=== PATIENT | female | born 1970 | race Caucasian/White ===

== ENCOUNTER 2021-05-25 02:05 | Day surgery (SDC) | payer OTHER, SELFPAY ==
[2021-05-16 11:47] VITALS: BMI 34.4
--- NOTE | 2021-05-24 14:32 | PM.HPGS ---
History of Present Illness History of Present Illness Consent: Risks, benefits, and alternatives have been discussed and questions answered. Patient agrees to proceed with procedure. Chief complaint: GERD, dysphagia Narrative: Deisy Mcneal I is a 50 year old female Who has had dysphagia and painful swallowing for meats and other solid foods for the past several months. She has no problem with liquids. she recently tried changing her diet and avoiding eating late at night to see if she could get by without taking medications. She actually has not had an episode for the past several weeks. She does also have a sensation of phlegm caught in the front of her throat most of the time. Review of Systems Review of Systems: All systems reviewed & are unremarkable except as noted in HPI and below PMFSH Past Medical History Medical History Enlarged lymph node Furuncle of skin or subcutaneous tissue Subcutaneous cyst Surgical History Surgical History S/P appendectomy S/P cholecystectomy Family History Family History Mother Family history of diabetes mellitus in first degree relative Diabetes mellitus Patient's mother is in good health Other Family history of cardiovascular disease Family history of kidney disease Social History Social History Smoking status: Never smoker Alcohol intake: never Substance use: never Substance use type: does not use Living arrangements: with family Gender identity (if verbalized by the patient): Female Sexual Orientation (if Verbalized by the Patient): Straight or Heterosexual Spiritual care concerns: No Meds Home Medications and Allergies Home Medications Medication Instructions Recorded Confirmed Type multivitamin 1 cap PO DAILY 09/17/19 05/16/21 History Metamucil 1 cap PO DAILY 05/16/21 05/16/21 History Allergies Allergy/AdvReac Type Severity Reaction Status Date / Time lactose AdvReac Intermediate GI UPSET Verified 05/25/21 09:38 Exam Const: General: alert Orientation/consciousness: patient oriented x3 Resp: Auscultation: clear to auscultation bilaterally Cardio: Rhythm: regular rhythm GI: GI Palp: Yes Soft to palpation and No Tenderness to palpation present (GI) Neuro: General: patient oriented x3 Assessment and Plan Assessment and plan (1) Dysphagia: Code(s): R13.10 - Dysphagia, unspecified Status: Acute Assessment and Plan: EGD with possible biopsy or dilatation or cautery.
[2021-05-25 09:41] VITALS: BP 131/64; PULSE 70; RESP 20; TEMP 36.5; O2SAT 97; BMI 34.8
[2021-05-25] MEDS: LACTATED RINGERS 1,000 ML 150 ML IV CONT (09:53)
--- NOTE | 2021-05-25 10:33 | P.PNAN_ITS ---
Anes - Initial Pre Proc Eval Procedure: Operation Date: 05/25/21 10:45 Proposed Procedures p Esophagogastroduodenoscopy - Chun Gonzalez MD Date/Time: 05/25/21 10:33 Surgeon: Chun Gonzalez MD Pre Op Diagnosis: GERD, dysphagia Patient Data Age: 50 Gender: F Height: 1.63 m Weight: 92 kg Last Vital Signs Temp 97.7 F 05/25/21 09:41 Pulse 70 05/25/21 09:41 Resp 20 05/25/21 09:41 BP 131/64 05/25/21 09:41 Pulse Ox 97 05/25/21 09:41 Allergies Allergy/AdvReac Type Severity Reaction Status Date / Time lactose AdvReac Intermediate GI UPSET Verified 05/25/21 09:38 Home Medications Medication Instructions Recorded Confirmed Type multivitamin 1 cap PO DAILY 09/17/19 05/16/21 History Metamucil 1 cap PO DAILY 05/16/21 05/16/21 History Patient hx anesthesia problems: none Family hx anesthesia problems: none Results Review: All pre-operative results and documents have been reviewed as part of the pre-operative evaluation. [facility] Past Medical History Medical History Enlarged lymph node Furuncle of skin or subcutaneous tissue Subcutaneous cyst Surgical History Surgical History S/P appendectomy S/P cholecystectomy Family History Family History Mother Family history of diabetes mellitus in first degree relative Diabetes mellitus Patient's mother is in good health Other Family history of cardiovascular disease Family history of kidney disease Social History Social History (Updated 04/20/21 @ 15:57 by Tiffany Hernández) Smoking status: Never smoker Alcohol intake: never Substance use: never Substance use type: does not use Living arrangements: with family Gender identity (if verbalized by the patient): Female Sexual Orientation (if Verbalized by the Patient): Straight or Heterosexual Spiritual care concerns: No Anes - Eval Final PreProcedure Day of Procedure 05/25/21 10:33 Patient weight: obese Heart: regular rate and rhythm Lungs: clear to auscultation Airway: Mallampati scale class II Neurological: alert and oriented Last oral intake: >/= 8 hours ASA classification: II Emergent: no Anesthetic plan: proceed Anesthesia type and monitoring: general GIVS and standard monitoring Results Review: All pre-operative results and documents have been reviewed as part of the pre-operative evaluation. Informed Consent: The patient's anesthetic plan and its attendant risks and benefits were discussed with the patient/family/POA. Questions were solicited and answers provided to the satisfaction of the patient/family/POA.
[2021-05-25 11:01] VITALS: BP 100/52; PULSE 79; RESP 20; O2SAT 100
[2021-05-25 11:11] VITALS: BP 106/63; PULSE 75; RESP 17; O2SAT 96
[2021-05-25 11:21] VITALS: BP 116/67; PULSE 68; RESP 16; O2SAT 96
== END 2021-05-25 11:30 | disposition home or self-care (01) ==
PROVIDERS: PCP Family Medicine; Visit Provider Internal Medicine Gastroenterology
PROC: 0DJ08ZZ Inspection of Upper Intestinal Tract, Via Natural or Artificial Opening Endoscopic (ICD-10-PCS; CPT 43235; principal; 2021-05-25 10:45)
DX: K22.2 Esophageal obstruction (principal); K21.00 Gastro-esophageal reflux disease with esophagitis, without bleeding; K44.9 Diaphragmatic hernia without obstruction or gangrene; K22.10 Ulcer of esophagus without bleeding; E66.9 Obesity, unspecified; Z68.34 Body mass index [BMI] 34.0-34.9, adult
CPT/HCPCS: 43239; 43249; 87081; 88305; C1726; J2001; J2704; J7120

== ENCOUNTER 2021-07-27 00:37 | Day surgery (SDC) | payer OTHER, SELFPAY ==
[2021-07-11 12:01] VITALS: BMI 34.4
--- NOTE | 2021-07-26 16:06 | P.HP_ITS ---
History of Present Illness History of Present Illness Consent: Risks, benefits, and alternatives have been discussed and questions answered. Patient agrees to proceed with procedure. Chief complaint: esophagitis, esophageal stricture Narrative: Deisy Mcneal is a 51 year old female Who has had dysphagia and painful swallowing for meats and other solid foods for the past several months. She has no problem with liquids. she recently tried changing her diet and av oiding eating late at night to see if she could get by without taking medications. She actually has not had an episode for the past several weeks. She does also have a sensation of phlegm caught in the front of her throat most of the time. Review of Systems Review of Systems: All systems reviewed & are unremarkable except as noted in HPI and below PMFSH Past Medical History Medical History Enlarged lymph node Furuncle of skin or subcutaneous tissue Subcutaneous cyst Surgical History Surgical History S/P appendectomy S/P cholecystectomy Family History Family History Mother Family history of diabetes mellitus in first degree relative Diabetes mellitus Patient's mother is in good health Other Family history of cardiovascular disease Family history of kidney disease Social History Social History Social History: Smoking status: Never smoker Second hand tobacco smoke exposure: No Alcohol intake: never Substance use: never Substance use type: does not use Living arrangements: with family Gender identity (if verbalized by the patient): Female Sexual Orientation (if Verbalized by the Patient): Straight or Heterosexual Spiritual care concerns: No Meds Home Medications and Allergies Home Medications Medication Instructions Recorded Confirmed Type multivitamin 1 cap PO DAILY 09/17/19 07/27/21 History Metamucil 1 cap PO DAILY 05/16/21 07/27/21 History Allergies Allergy/AdvReac Type Severity Reaction Status Date / Time lactose AdvReac Intermediate GI UPSET Verified 07/27/21 08:01 Assessment and Plan Assessment and plan (1) Dysphagia: Code(s): R13.10 - Dysphagia, unspecified Status: Acute Assessment and Plan: EGD with possible biopsy or dilatation or cautery. The procedure was discussed including the possibility of bleeding or perforation as complications, the fact that either complication could result in need for hospitalization and even surgery.
[2021-07-27 08:02] VITALS: BP 117/59; PULSE 70; RESP 17; TEMP 36.2; O2SAT 98; BMI 34.2
[2021-07-27] MEDS: LACTATED RINGERS 1,000 ML 150 ML IV CONT (08:04)
--- NOTE | 2021-07-27 08:41 | WPDANESEPPF ---
Anes - Initial Pre Proc Eval Procedure: Operation Date: 07/27/21 08:30 Proposed Procedures p Esophagogastroduodenoscopy - Chun Gonzalez MD Date/Time: 07/27/21 08:41 Surgeon: Chun Gonzalez MD Pre Op Diagnosis: esophagitis, esophageal stricture Patient Data Age: 51 Gender: F Height: 1.63 m Weight: 90.3 kg Last Vital Signs Temp 97.1 F L 07/27/21 08:02 Pulse 70 07/27/21 08:02 Resp 17 07/27/21 08:02 BP 117/59 L 07/27/21 08:02 Pulse Ox 98 07/27/21 08:02 Allergies Allergy/AdvReac Type Severity Reaction Status Date / Time lactose AdvReac Intermediate GI UPSET Verified 07/27/21 08:01 Home Medications Medication Instructions Recorded Confirmed Type multivitamin 1 cap PO DAILY 09/17/19 07/27/21 History Metamucil 1 cap PO DAILY 05/16/21 07/27/21 History Patient hx anesthesia problems: none Family hx anesthesia problems: none Results Review: All pre-operative results and documents have been reviewed as part of the pre-operative evaluation. [facility] Past Medical History Medical History Enlarged lymph node Furuncle of skin or subcutaneous tissue Subcutaneous cyst Surgical History Surgical History S/P appendectomy S/P cholecystectomy Family History Family History Mother Family history of diabetes mellitus in first degree relative Diabetes mellitus Patient's mother is in good health Other Family history of cardiovascular disease Family history of kidney disease Social History Social History Social History: Smoking status: Never smoker Second hand tobacco smoke exposure: No Alcohol intake: never Substance use: never Substance use type: does not use Living arrangements: with family Gender identity (if verbalized by the patient): Female Sexual Orientation (if Verbalized by the Patient): Straight or Heterosexual Spiritual care concerns: No Anes - Eval Final PreProcedure Day of Procedure 07/27/21 08:41 Patient weight: obese Heart: regular rate and rhythm Lungs: clear to auscultation Airway: Mallampati scale class II Neurological: alert and oriented Last oral intake: >/= 8 hours ASA classification: II Emergent: no Anesthetic plan: proceed Anesthesia type and monitoring: general GIVS and standard monitoring Results Review: All pre-operative results and documents have been reviewed as part of the pre-operative evaluation. Informed Consent: The patient's anesthetic plan and its attendant risks and benefits were discussed with the patient/family/POA. Questions were solicited and answers provided to the satisfaction of the patient/family/POA.
[2021-07-27 09:12] VITALS: BP 84/62; PULSE 73; RESP 20; O2SAT 97
[2021-07-27 09:22] VITALS: BP 95/56; PULSE 61; RESP 20; O2SAT 100
[2021-07-27 09:32] VITALS: BP 100/59; PULSE 60; RESP 20; O2SAT 100
== END 2021-07-27 09:41 | disposition home or self-care (01) ==
PROVIDERS: PCP Family Medicine; Visit Provider Internal Medicine Gastroenterology
PROC: 0DJ08ZZ Inspection of Upper Intestinal Tract, Via Natural or Artificial Opening Endoscopic (ICD-10-PCS; CPT 43235; principal; 2021-07-27 08:30)
DX: K21.00 Gastro-esophageal reflux disease with esophagitis, without bleeding (principal); K22.2 Esophageal obstruction; K44.9 Diaphragmatic hernia without obstruction or gangrene; K29.70 Gastritis, unspecified, without bleeding; E66.9 Obesity, unspecified; Z68.34 Body mass index [BMI] 34.0-34.9, adult
CPT/HCPCS: 43239; 43249; 87081; 88305; C1726; J2704; J7120

== ENCOUNTER → 2021-10-03 09:53 | Outpatient (CLI) | payer OTHER, SELFPAY ==
--- NOTE | ~2021-10-03 | XR_ITS ---
XR foot RT min 3V DATE: 10/03/2021 10:31 INDICATION: Right foot pain TECHNIQUE: 4 views COMPARISON: None FINDINGS: Prominent plantar calcaneal enthesopathy. No fracture or dislocation, periosteal reaction or bone destruction. There is mild degenerative change of the tarsal and tarsometatarsal joints. IMPRESSION: Plantar calcaneal enthesopathy Mild osteoarthritis Reviewed, dictated and finalized at location A. RT WITNESS
== END ==
PROVIDERS: PCP Family Medicine; Visit Provider Physician Assistant
DX: M77.31 Calcaneal spur, right foot (principal); M19.071 Primary osteoarthritis, right ankle and foot
CPT/HCPCS: 73630

== ENCOUNTER → 2022-01-01 09:03 | Outpatient (CLI) | payer BC, SELFPAY ==
--- NOTE | ~2022-01-01 | XR_ITS ---
XR knee RT min 4V DATE: 01/01/2022 09:35 INDICATION: Right knee pain TECHNIQUE: [place] and standing AP, PA and lateral views COMPARISON: 11/08/2004 FINDINGS: There is periarticular spurring at the patellofemoral joint and medial compartment consiste nt with osteoarthritis. Medial and lateral compartment joint spaces appear relatively preserved. There is mild suprapatellar knee joint effusion. No fracture or dislocation, periosteal reaction or bone destruction. No radiopaque intra-articular lo ose body or chondrocalcinosis. IMPRESSION: Mild knee joint effusion Mild medial and patellofemoral osteoarthritis Reviewed, dictated and finalized at location B.
== END ==
PROVIDERS: PCP Family Medicine; Visit Provider Physician Assistant
DX: M25.461 Effusion, right knee (principal); M17.11 Unilateral primary osteoarthritis, right knee
CPT/HCPCS: 73564

== ENCOUNTER → 2022-10-17 12:17 | Outpatient (CLI) | payer BC, SELFPAY ==
--- NOTE | ~2022-10-17 | MR_ITS ---
MRI of the right knee Clinical history: Pain Technique: Coronal proton density and proton density-weighted images, sagittal proton-density and T2 fat-sat images, and axial proton-density fat-saturated images were acquired. Findings: Anterior and posterior cruciate ligaments are intact. Medial collateral ligament and the la teral collateral ligament complex are intact. Popliteus tendon is intact. Medial and lateral menisci are intact, without evidence of tear. Articular cartilage is well preserved the medial and lateral compartment. 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 Tricompartmental osteophytes are present. Extensor mechanism is intact. Small joint effusion present. No Shirley's cyst. Impression: Moderate degenerative change of the patellofemoral compartment. Minimal degenerative change of the me dial and lateral compartments. Small joint effusion. No ligamentous injury or meniscal tear. Reviewed, dictated and finalized at [facility]. 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 Minimal degener ative change of the medial and lateral compartments. Small joint effusion. No ligamentous injury or meniscal tear.
== END ==
PROVIDERS: PCP Family Medicine; Visit Provider Orthopaedic Surgery
DX: M25.461 Effusion, right knee (principal)
CPT/HCPCS: 73721

== ENCOUNTER 2024-10-17 08:50 | Outpatient (CLI) | payer BC, SELFPAY ==
--- NOTE | ~2024-10-17 | XR_ITS ---
EXAMINATION: XR tibia fibula RT 2V DATE: 10/17/2024 09:05 INDICATION: Right lower leg injury TECHNIQUE: AP and lateral views of the right lower leg were obtained. COMPARISON: None. FINDINGS: Bone alignment is normal. No fracture. No cortical erosions or periosteal reaction. Mild osteoarthrit is at the lateral and patellofemoral compartments of the right knee. No right knee or ankle joint eff usion. Mild soft tissue swelling anterior to the distal tibia. Subcutaneous varicosities along the la teral side of the right knee and along the posterior lateral aspects of the proximal to mid calf. No radiopaque foreign bodies. IMPRESSION: 1. No acute osseous abnormality. Reviewed, dictated and finalized at location A. 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
== END 2024-10-17 08:51 | disposition home or self-care (01) ==
LOC: MICIMG 08:51
PROVIDERS: PCP Family Medicine; Visit Provider Physician Assistant
DX: S89.91XA Unspecified injury of right lower leg, initial encounter (principal); X58.XXXA Exposure to other specified factors, initial encounter; M79.661 Pain in right lower leg
CPT/HCPCS: 73590

== ENCOUNTER 2024-11-18 07:46 | Outpatient (CLI) | payer BC, SELFPAY ==
--- NOTE | ~2024-11-18 | XR_ITS ---
XR knee RT min 4V Ordering provider: Josh Watson MD History: . M22.2X9 - Patellofemoral disorders, unspecified knee . Comparison: None. FINDINGS: BONES: No acute fracture or dislocation. JOINT SPACES: Mild narrowing of the lateral compartment. Marginal osteophytes of the patella. SOFT TISSUES: Normal. IMPRESSION: No acute osseous abnormality right knee. Mild osteoarthritic changes. Reviewed, dictated and finalized at location A.
== END 2024-11-18 07:47 | disposition home or self-care (01) ==
LOC: MICIMG 07:47
PROVIDERS: PCP Family Medicine; Visit Provider Orthopaedic Surgery
DX: M22.2X1 Patellofemoral disorders, right knee (principal); M17.11 Unilateral primary osteoarthritis, right knee
CPT/HCPCS: 73564

== ENCOUNTER 2025-03-17 13:18 | Outpatient (CLI) | payer BC, SELFPAY ==
--- NOTE | ~2025-03-17 | XR_ITS ---
XR knee RT min 4V 03/17/2025 13:47 Indication: Right knee pain Procedure: 5 views right knee Comparison: 11/18/2024 Findings: There is mild tricompartment osteoarthritis. No fracture, subluxation or dislocation. No sakina int effusion. No foreign bodies. Impression: 1: Mild tricompartment osteoarthritis of the right knee. Reviewed, dictated and finalized at location A. Impression: 1: Mild tricompartment osteoarthritis of the right knee.
== END 2025-03-17 13:19 | disposition home or self-care (01) ==
LOC: MICIMG 13:19
PROVIDERS: PCP Family Medicine; Visit Provider Orthopaedic Surgery
DX: M17.11 Unilateral primary osteoarthritis, right knee (principal)
CPT/HCPCS: 73564

== ENCOUNTER 2025-06-01 12:52 | Outpatient (CLI) | payer BC, SELFPAY ==
--- OUTSIDE RECORDS SUMMARY | 2025-04-05 10:10 | XMS_ITS ---
Author Organization [facility] Address [address] [place], [place] [id number] Care Team Providers Care Eye Surgeon Name Role Phone MIKA MILLS Unavailable [phone] Marc Neff Unavailable Unavailable REASON FOR VISIT [...] stop date) Never Smoker NA - NA Tobacco Control (Standard) Question Answer Notes Tobacco use: Nonsmoker Vital Signs Height 63 in 04/05/2025 Weight 200 lbs 04/05/2025 BMI 35.42 kg/m2 04/05/2025 Height-cm 160.02 cm 04/05/2025 Weight-kg 90.72 kg 04/05/2025 Encounters Encounter Location Date Provider Diagnosis [facility] [address] [address] [place], [place] [id number] 04/05/2025 MIKA NEWBERRY Other eccrine sweat disorders [...] Weeks, Reason: Debride and ablate as needed Progress Notes * Deisy HESS IDOB:1970 (54 yo F)Acc No.[id number]:04/05/2025 Patient: Deisy BOLIVAR I Provider: Hari Newberry DPM :1970 A ge:54 Y S ex:Female Date:04/05/2025 Address:[address] [place], [place] [id number] Subjective: * Chief Complaints: * 1 . The patient presents with multiple foot issues. She has painful porokeratosis that form on the 5th metatarsal bases of both feet, but the right hurts worse than the left. She also has a painful 2nd digit hammertoe of the right foot that also hurts and aches. * HPI: H PI: Follow Up Visit P atient presents for follow up visit for bilateral porokeratosis spots. Patient states they are extremely painful and need to be shaved down. , MA: [facility]. * ROS: G eneral / Constitutional: Patient [...] confusion, difficulty speaking, dizziness. * Medical History: A jeremias reflux, Leg/Feet cramps, Back Trouble. * Social History: T obacco Use: T obacco Control (Standard) T obacco use: N onsmoker. * Medications: N one Objective: * Vitals: [...] Weeks (Reason: Debride and ablate as needed) * Billing Information: * Visit Code: 86713 Office Visit, Est Pt., Level 3. * Procedure Codes: * Electronic signature of MIKA NEWBERRY DPM on 06/01/2025 at 01:41 PM CDT Sign off status: Pending * Provider: Hari Newberry DPM Date: 0 04/05/2025 Generated for Heavenly hansen/Ileana/Jenniffer on: 1 01:41 PM CDT History and Physical Notes * HPI (History of Present Illness) Category Sub-Category Detail Notes Category Not es HPI Follow Up Visit Patient presents for follow up visit for bilateral porokeratosis spots. Patient states they are extremely painful and need to be shaved down. , MA: [facility] Examination Category Sub-Category Detail Notes Category Not es Dermatologic Skin findings: Skin is warm, dr y, supple with no breaks in the skin [...]
--- OUTSIDE RECORDS SUMMARY | 2025-04-19 11:10 | XMS_ITS ---
Author Organization [facility] Address [address] [place], [place] [id number] Care Team Providers Care Information Strategist Name Role Phone MIKA NEWBERRY Unavailable [phone] Marc Neff Unavailable Unavailable REASON FOR VISIT *Porokeratosis check, has to knot picker cloth granddaugheter Encounters Encounter Location Date Provider Diagnosis [facility] [place] [address] [place], [place] [address] 04/19/2025 MIKA NEWBERRY Plan Of Treatment No Information Progress Notes * Deisy HESS IDOB:1970 (54 yo F)Acc No.[id number]:04/19/2025 Patient: Deisy BOLIVAR I Provider: Hari Newberry DPM :1970 A ge:54 Y S ex:Female Date:04/19/2025 Address:[address] [place], [place] [id number] Subjective: * Chief Complaints: * 1 . *Porokeratosis check, has to knot picker cloth granddaugheter. * Medical History: Objective: * Vitals: Assessment: Plan: * Treatment: * Billing Information: * Visit Code: * Procedure Codes: * Electronic signature of MIKA NEWBERRY DPM on 06/01/2025 at 01:41 PM CDT Sign off status: Pending * Provider: Hari Newberry DPM Date: 0 04/19/2025 Generated for Feri ng/Fajuwang/eTransmitting on: 1 01:41 PM CDT
--- OUTSIDE RECORDS SUMMARY | 2025-05-06 08:40 | XMS_ITS ---
Author Organization [facility] Address [address] [place], [place] [address] Care Team Providers Care Chainer Name Role Phone MARYKorin MIKA Unavailable [phone] Marc Neff Unavailable Unavailable Allergies No Known [...] Location Date Provider Diagnosis [facility] [address] [facility] [address] [place], [place] [phone] 05/06/2025 MIKA NEWBERRY Other eccrine sweat disorders [...] Next Appt Details Follow Up: prn, Reason: Progress Notes * Deisy HESS IDOB:1970 (54 yo F)Acc No.[id number]:05/06/2025 Patient: Deisy BOLIVAR I Provider: Hari Newberry DPM :1970 A ge:54 Y S ex:Female Date:05/06/2025 Address:[address] [place], [place] [id number] Subjective: * Chief Complaints: * 1 . The patient tolerated the chemical ablation well. She also has pain in the left great toenail. She has never had an ingrown toenail before. It has not been bleeding or draining. * HPI: H PI: New Complaint E [...] jeremias reflux, Leg/Feet cramps, Back Trouble. * Surgical History: D enies Past Surgical History. * Hospitalization/Major Diagno stic Procedure: D enies Past Hospitalization. * Family History: N o Family History documented.. * Medications: N one * Allergies: N .K.D.A. Objective: * Vitals: S hoe Size: 9, [...] foot health. * Follow Up: p rn * Billing Information: * Visit Code: 04519 Office Visit, Est Pt., Level 3. * Procedure Codes: * Electronic signature of MIKA NEWBERRY DPM on 06/01/2025 at 01:42 PM CDT Sign off status: Pending * Provider: Hari Newberry DPM Date: 0 05/06/2025 Generated for Heavenly hansen/Ileana/Jenniffer on: 01:42 PM CDT History and Physical Notes * [...]
--- NOTE | 2025-06-01 13:11 | ECG_ITS ---
Test Date: 2025-06-01 13:47:21 Measurements Intervals [place] Rate: 66 P: 35 AK: 151 QRS: -30 QRSD: 82 T: 0 QT: 405 QTc: 425 Interpretive Statements SINUS RHYTHM DELAYED PRECORDIAL R/S TRANSITION BORDERLINE T WAVE ABNORMALITY- INFERIOR LEADS BORDERLINE ECG No previous ECG available for comparison Electronically Signed On 06-01-2025 13:55:21 CDT by Cody Carreon D.O.
[2025-06-01 13:42] LABS: Hematocrit 40.1 % (37.0-47.0); Hemoglobin 12.7 g/dL (12.0-15.0)
--- OUTSIDE RECORDS SUMMARY | 2025-06-01 13:42 | XMS_ITS | Patient Health Record ---
Author Organization [facility] Address [address] [place], [place] [address] Care Team Providers Care Assisted Living Director Name Role Phone MIKA NEWBERRY Unavailable [phone] Marc Neff Unavailable Unavailable Allergies No Known Allergies Reason For Referral No Information Immunizations Vaccine Route Administration Date Status Comme nts Influenza, high dose seasonal Unknown 01/13/2024 Refuse d Pneumococcal conjugate PCV 13 Unknown 01/13/2024 Refuse d Social History Tobacco Use: Social History Observation Description Date Details (start date - stop date) Never Smoker NA - NA Tobacco Control (Standard) Question Answer Notes Tobacco use: Nonsmoker Vital Signs Height-cm 160.02 cm 05/06/2025 Weight-kg 90.72 kg 05/06/2025 Height 63 in 05/06/2025 Weight 200 lbs 05/06/2025 BMI 35.42 kg/m2 05/06/2025 Encounters Encounter Location Date Provider Diagnosis [facility] [address] [place], [place] [id number] 04/05/2025 MIKA SNOOK Other eccrine sweat disorders L74.8 ; Metatarsalgia, right foot M77.41 ; Other hammer toe(s) (acquired), right foot M20.41 and Pain in right foot M79.671 [facility] [address] [place], [place] [address] 05/06/2025 MIKA SNOOK Other eccrine sweat disorders L74.8 ; Ingrowing nail L60.0 and Metatarsalgia, right foot M77.41 [facility] [place] [address] [address] [place] [id number] 06/15/2024 MIKA SNOOK Other eccrine sweat disorders L74.8 ; Metatarsalgia, right foot M77.41 and Pain in right foot M79.671 [facility] [place] [address] [address] [place] [id number] 06/29/2024 MIKA SNOOK Other eccrine sweat disorders L74.8 and Metatarsalgia, right foot M77.41 [facility] [place] [address] [address] [place] [id number] 11/16/2024 MIKA SNOOK Other eccrine sweat disorders L74.8 ; Metatarsalgia, right foot M77.41 ; Other hammer toe(s) (acquired), right foot M20.41 and Pain in right foot M79.671 [facility] [place] [address] [address] [place] [id number] 11/30/2024 MIKA SNOOK Other eccrine sweat disorders L74.8 ; Metatarsalgia, right foot M77.41 ; Other hammer toe(s) (acquired), right foot M20.41 and Pain in right foot M79.671 Assessments Encounter Date Diagnosis (ICD Code) Assessment Notes Treatment Notes Treatment Clinical Notes Section Notes 06/15/2024 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 The patient was given after care instructions. Follow up in two weeks to debride and re-ablate as needed. 06/15/2024 Metatarsalgia, right foot (ICD-10 - M77.41) Metatarsalgia: I discussed anti-inflammatory treatment options and various means of immobilization with the patient. I educated the patient on icing and stretching, supportive shoegear, and the use of orthotic devices and bracing. Shoe Recommendation: Advised patient on appropriate shoe gear for protection, healing and good foot health. 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 No evidence of porokeratosis noted. Patient advised to monitor this area, as well as to use emollients and keep pressure off this area with padding, inserts, or orthotics. 06/29/2024 Metatarsalgia, right foot (ICD-10 - M77.41) Metatarsalgia: I discussed anti-inflammatory treatment options and various means of immobilization with the patient. I educated the patient on icing and stretching, supportive shoegear, and the use of orthotic devices and bracing. Shoe Recommendation: Advised patient on appropriate shoe gear for protection, healing and good foot health. 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 The patient was given after care instructions. Follow up in two weeks to debride and re-ablate as needed. 11/16/2024 Metatarsalgia, right foot (ICD-10 - M77.41) Metatarsalgia: I discussed anti-inflammatory treatment options and various means of immobilization with the patient. I educated the patient on icing and stretching, supportive shoegear, and the use of orthotic devices and bracing. Shoe Recommendation: Advised patient on appropriate shoe gear for protection, healing and good foot health. 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 No evidence of porokeratosis noted. Patient advised to monitor this area, as well as to use emollients and keep pressure off this area with padding, inserts, or orthotics. 11/30/2024 Metatarsalgia, right foot (ICD-10 - M77.41) Metatarsalgia: I discussed anti-inflammatory treatment options and various means of immobilization with the patient. I educated the patient on icing and stretching, supportive shoegear, and the use of orthotic devices and bracing. Shoe Recommendation: Advised patient on appropriate shoe gear for protection, healing and good foot health. 04/05/2025 Other eccrine sweat disorders (ICD-10 - [...] for protection, healing and good foot health. 05/06/2025 Ingrowing nail (ICD-10 - L60.0) Slant Back Toenail: Following skin prep, the offending nail border was debrided without anesthesia. The patient was instructed on monitoring for infection or recurrence. 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 No evidence of porokeratosis noted. Patient advised to monitor this area, as well as to use emollients and keep pressure off this area with padding, inserts, or orthotics. 05/06/2025 Metatarsalgia, right foot (ICD-10 - M77.41) [...] accomodative padding to offload pressure from area. 11/30/2024 Other hammer toe(s) (acquired), right foot (ICD-10 - M20.41) Hammertoe Deformity: Discussed various treatments for hammer toes with the patient . Discussed conservative care consisting of padding, wider shoes, anti-inflammatorie s, and orthotics. Discussed surgical treatment options and answered all questions about the intra-operative and post-operative treatment course. 11/16/2024 Other hammer toe(s) (acquired), right foot (ICD-10 - M20.41) Hammertoe Deformity: Discussed various treatments for hammer toes with the patient . Discussed conservative care consisting of padding, wider shoes, anti-inflammatorie s, and orthotics. Discussed surgical treatment options and answered all questions about the intra-operative and post-operative treatment course. 06/15/2024 Pain in right foot (ICD-10 - M79.671) 11/16/2024 Pain in right foot (ICD-10 - M79.671) 11/30/2024 Pain in right foot (ICD-10 - M79.671) 04/05/2025 Pain in right foot (ICD-10 - M79.671) Plan Of Treatment No Information Insurance Providers Payer Name Payer Address Payer Phone Subscriber Number Group Number Insured Name Patient Relationship to Insured Coverage Start Date Coverage End Date [facility] ([facility]) ATTN CLAIMS [address] [place] [address] [id number] Deisy Mcneal Self - patient is the insured Medical (General) History Medical History History ICD Code acid reflux Leg/Feet cramps Back Trouble
[2025-06-01 14:12] LABS: Albumin Level 4.0 g/dL (3.5-5.1); Estimated Glomerular Filt Rate > 60; Glucose 94 mg/dL (65-110)
== END 2025-06-01 12:53 | disposition home or self-care (01) ==
LOC: ANHLAB 12:53
PROVIDERS: PCP Family Medicine; Visit Provider Orthopaedic Surgery
DX: M17.11 Unilateral primary osteoarthritis, right knee (principal); E55.9 Vitamin D deficiency, unspecified; Z01.818 Encounter for other preprocedural examination; R94.31 Abnormal electrocardiogram [ECG] [EKG]
CPT/HCPCS: 36415; 82040; 82565; 82947; 85014; 85018; 93005

== ENCOUNTER 2025-07-15 09:54 | Outpatient (CLI) | payer BC, SELFPAY ==
[2025-07-15 11:02] LABS: Hematocrit 42.5 % (37.0-47.0); Hemoglobin 13.3 g/dL (12.0-15.0); Immature Granulocyte Percent A 0.3 % (0-0.5); Lymphocytes Absolute Auto 2.06 K/mm3 (0.9-3.2); Mean Corpuscular HGB Conc 31.3 g/dl (32-36); Mean Corpuscular Hemoglobin 27.0 pg (26-34); Mean Corpuscular Volume 86.2 fl (80-100); Nucleated Red Blood Cells Absolute Auto 0.000 K/mm3 (0.0-0.012); Nucleated Red Blood Cells Perc 0.0 % (0.0-0.2); Platelet Count Result 246 k/mm3 (150-375); Red Blood Count 4.93 M/mm3 (4.2-5.4); White Blood Count 7.9 K/mm3 (4.5-10.0)
[2025-07-15 11:15] LABS: Hemoglobin A1C 5.7 % (<5.7)
[2025-07-15 11:21] LABS: Albumin Level 4.0 g/dL (3.5-5.1); Estimated Glomerular Filt Rate > 60; Glucose 93 mg/dL (65-110)
[2025-07-15 12:13] LABS: MRSA (PCR) NOT DETECTED (NOT DETECTE)
== END 2025-07-15 09:55 | disposition home or self-care (01) ==
LOC: ANHSURGERY 10:00
PROVIDERS: PCP Family Medicine; Visit Provider Orthopaedic Surgery
DX: M17.11 Unilateral primary osteoarthritis, right knee (principal); Z01.818 Encounter for other preprocedural examination
CPT/HCPCS: 80307; 82040; 82565; 82947; 83036; 85025; 87641

== ENCOUNTER 2025-08-12 02:42 | Day surgery (SDC) | payer BC, SELFPAY ==
--- OUTSIDE RECORDS SUMMARY | 2025-04-05 09:10 | XMS_ITS ---
Author Organization [facility] Address [address] [place], [place] [id number] Care Team Providers Care Liquor Runner Name Role Phone MIKA MILLS Unavailable [phone] Marc Neff Unavailable Unavailable REASON FOR VISIT The patient presents with multiple foot issues. She has painful porokeratosis that form on the 5th metatarsal bases of both feet, but the right hurts worse than the left. She also has a painful 2nd digit hammertoe of the right foot that also hurts and aches Social History Tobacco Use: Social History Observation Description Date Details (start date - stop date) Never Smoker NA - NA Social History Tobacco Use: Social Info Question Answer Notes Tobacco Control (Standard) Tobacco use: Nonsmoker Vital Signs Height 63 in 04/05/2025 Weight 200 lbs 04/05/2025 BMI 35.42 kg/m2 04/05/2025 Height-cm 160.02 cm 04/05/2025 Weight-kg 90.72 kg 04/05/2025 Encounters Encounter Location Date Provider Diagnosis [facility] [address] [place], [place] [id number] 04/05/2025 MIKA NEWBERRY Other eccrine sweat disorders L74.8 ; Metatarsalgia, right foot M77.41 ; Other hammer toe(s) (acquired), right foot M20.41 and Pain in right foot M79.671 Assessments Encounter Date Diagnosis (ICD Code) Assessment Notes Treatment Notes Treatment Clinical Notes Section Notes 04/05/2025 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 The patient was given after care instructions. Follow up in two weeks to debride and re-ablate as needed. 04/05/2025 Metatarsalgia, right foot (ICD-10 - M77.41) Metatarsalgia: I discussed anti-inflammatory treatment options and various means of immobilization with the patient. I educated the patient on icing and stretching, supportive shoegear, and the use of orthotic devices and bracing. Shoe Recommendation: Advised patient on appropriate shoe gear for protection, healing and good foot health. 04/05/2025 Other hammer toe(s) (acquired), right foot (ICD-10 - M20.41) Hammertoe Deformity: Discussed various treatments for hammer toes with the patient . Discussed conservative care consisting of padding, wider shoes, anti-inflammatorie s, and orthotics. Discussed surgical treatment options and answered all questions about the intra-operative and post-operative treatment course. Padding: Application of accomodative padding to offload pressure from area. 04/05/2025 Pain in right foot (ICD-10 - M79.671) Plan Of Treatment Treatment Notes Assessment Notes Other eccrine sweat disorders Porokeratosis: The lesions were debrided to normal appearing skin and then chemically ablated with pyrogallic acid and covered with an occlusive dressing. The patient was given after care instructions. Follow up in two weeks to debride and re-ablate as needed. Metatarsalgia, right foot Metatarsalgia: I discussed anti-inflammatory treatment options and various means of immobilization with the patient. I educated the patient on icing and stretching, supportive shoegear, and the use of orthotic devices and bracing. Shoe Recommendation: Advised patient on appropriate shoe gear for protection, healing and good foot health. Other hammer toe(s) (acquire d), right foot Hammertoe Deformity: Discussed various treatments for hammer toes with the patient . Discussed conservative care consisting of padding, wider shoes, anti-inflammatories, and orthotics. Discussed surgical treatment options and answered all questions about the intra-operative and post-operative treatment course. Padding: Application of accomodative padding to offload pressure from area. Next Appt Details Follow Up: 2 Weeks, Reason: Debride and ablate as needed History and Physical Notes * HPI (History of Present Illness) Category Sub-Category Detail Notes Category Not es HPI Follow Up Visit Patient presents for follow up visit for bilateral porokeratosis spots. Patient states they are extremely painful and need to be shaved down. , KATHARINA: bouchra Examination Category Sub-Category Detail Notes Category Not es Dermatologic Skin findings: Skin is warm, dr tellez, supple with no breaks in the skin Hypertrophic / hyperkeratotic lesion: th ere is a hyperkeratotic skin lesion on the base of the right and left 5th metatarsals; plantar-lateral aspect. Debridement to this area demonstrates a nucleated core Neurologic Gross sensation Gross sensation is intact to light touch Vascular Dorsalis pedis pulse: 2/4, bilateral Edema: No edema, bilateral Capillary refill: less than 3 seconds Posterior tibial pulse: 2/4, bilateral Musculoskeletal Muscle Strength Muscle strength is 5/5 in regards to dorsiflexion, plantarflexion, inversion, and eversion in bilateral lower extremities Pain on palpation pain on palpation to the base of the right 5th metatarsal Hammertoes Dorsally contracted digits 2-5 bilateral. The deformity is flexible and reducible Constitutional Constitutional The patient is a wake, alert, well developed, well groomed and well nourished Progress Notes * Deisy HESS IDOB:1970 (55 yo F)Acc No.[id number]:04/05/2025 Patient: Deisy Donaldson I Provider: Hari Newberry DPM :1970 A ge:54 Y S ex:Female Date:04/05/2025 Address:[address] [place], [place] [id number] Subjective: * Chief Complaints: * T he patient presents with multiple foot issues. She has painful porokeratosis that form on the 5th metatarsal bases of both feet, but the right hurts worse than the left. She also has a painful 2nd digit hammertoe of the right foot that also hurts and aches * HPI: H PI: Follow Up Visit P atient presents for follow up visit for bilateral porokeratosis spots. Patient states they are extremely painful and need to be shaved down. , KATHARINA: bouchra. * ROS: G eneral / Constitutional: Patient denies c hills, fever, weakness, night sweats. M usculoskeletal: Patient denies c hildhood foot problems, weakness. P atient complains of h ammertoes. P eripheral Vascular: Patient denies u lceration of feet, cold extremities. ? S kin: Patient denies u lcerations, discoloration. P atient complains of c alluses and corns. N eurologic: Patient denies b alance difficulty, confusion, difficulty speaking, dizziness. * Medical History: Acid reflux Leg/Feet cramps Back Trouble Medical History Verified * Social History: T obacco Use: T obacco Control (Standard) T obacco use: N onsmoker. Social History Verified. * Medications: N one Objective: * Vitals: S hoe Size: 9, Wt:200lbs, Wt-k.72 kg, Ht: 63 in, Ht-cm: 160.02 cm, BMI:35.42Index, Body Surface Area: 2.01. * Examination: C onstitutional: Constitutional T he patient is awake, alert, well developed, well groomed and well nourished. D ermatologic: Skin findings: S kin is warm, dry, supple with no breaks in the skin. Hypertrophic / hyperkeratotic lesion: t here is a hyperkeratotic skin lesion on the base of the right and left 5th metatarsals; plantar-lateral aspect. Debridement to this area demonstrates a nucleated core. V ascular: Dorsalis pedis pulse: 2 /4, bilateral. Posterior tibial pulse: 2 /4, bilateral. Capillary refill: l ess than 3 seconds. Edema: N o edema, bilateral. N eurologic: Gross sensation G ross sensation is intact to light touch.? M usculoskeletal: Muscle Strength M uscle strength is 5/5 in regards to dorsiflexion, plantarflexion, inversion, and eversion in bilateral lower extremities. Pain on palpation p ain on palpation to the base of the right 5th metatarsal. Hammertoes D orsally contracted digits 2-5 bilateral. The deformity is flexible and reducible. Assessment: * Assessment: 1. O ther eccrine sweat disorders - L74.8 (Primary) 2 . M etatarsalgia, right foot - M77.41 3 . O ther hammer toe(s) (acquired), right foot - M20.41 ? 4 . P ain in right foot - M79.671 Plan: * Treatment: 2. M etatarsalgia, right foot Notes: Metatarsalgia: I discussed anti-inflammatory treatment options and various means of immobilization with the patient. I educated the patient on icing and stretching, supportive shoegear, and the use of orthotic devices and bracing. S earline Recommendation: Advised patient on appropriate shoe gear for protection, healing and good foot health. 3. O ther hammer toe(s) (acquired), right foot Notes: Hammertoe Deformity: Discussed various treatments for hammer toes with the patient . Discussed conservative care consisting of padding, wider shoes, anti-inflammatories, and orthotics. Discussed surgical treatment options and answered all questions about the intra-operative and post-operative treatment course. P adding: Application of accomodative padding to offload pressure from area. * Immunizations: Immunization record has been reviewed and updated. * Follow Up: 2 Weeks (Reason: Debride and ablate as needed) Billing Information: * Visit Code: 70432 Office Visit, Est Pt., Level 3. * Electronic signature of MIKA NEWBERRY DPM on 08/12/2025 at 02:44 AM FRONT DESK HOST Sign off status: Pending * Provider: Hari Newberry DPM Date: 0 04/05/2025 Generated for Heavenly hansen/Ileana/Jenniffer on: 1 10/13/2024 02:44 AM FRONT DESK HOST
--- OUTSIDE RECORDS SUMMARY | 2025-05-06 07:40 | XMS_ITS ---
Author Organization [facility] Address [address] [place], [place] [address] Care Team Providers Care Front Desk Host Name Role Phone MARYKorin MIKA Unavailable [phone] Marc Neff Unavailable Unavailable Allergies No Known Allergies REASON FOR VISIT The patient tolerated the chemical ablation well. She also has pain in the left great toenail. She has never had an ingrown toenail before. It has not been bleeding or draining Vital Signs Height 63 in 05/06/2025 Weight 200 lbs 05/06/2025 BMI 35.42 kg/m2 05/06/2025 Height-cm 160.02 cm 05/06/2025 Weight-kg 90.72 kg 05/06/2025 Encounters Encounter Location Date Provider Diagnosis [facility] [address] [facility] [address] [place], [place] [id number] 05/06/2025 MIKA NEWBERRY Other eccrine sweat disorders L74.8 ; Ingrowing nail L60.0 and Metatarsalgia, right foot M77.41 Assessments Encounter Date Diagnosis (ICD Code) Assessment Notes Treatment Notes Treatment Clinical Notes Section Notes 05/06/2025 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 No evidence of porokeratosis noted. Patient advised to monitor this area, as well as to use emollients and keep pressure off this area with padding, inserts, or orthotics. 05/06/2025 Ingrowing nail (ICD-10 - L60.0) Slant Back Toenail: Following skin prep, the offending nail border was debrided without anesthesia. The patient was instructed on monitoring for infection or recurrence. 05/06/2025 Metatarsalgia, right foot (ICD-10 - M77.41) Metatarsalgia: I discussed anti-inflammatory treatment options and various means of immobilization with the patient. I educated the patient on icing and stretching, supportive shoegear, and the use of orthotic devices and bracing. Shoe Recommendation: Advised patient on appropriate shoe gear for protection, healing and good foot health. Plan Of Treatment Treatment Notes Assessment Notes Other eccrine sweat disorders Porokeratosis Resolved: The nonviable tissue was sharply debrided down to normal healthy appearing skin. No evidence of porokeratosis noted. Patient advised to monitor this area, as well as to use emollients and keep pressure off this area with padding, inserts, or orthotics. Ingrowing nail Slant Back Toenail: Following skin prep, the offending nail border was debrided without anesthesia. The patient was instructed on monitoring for infection or recurrence. Metatarsalgia, right foot Metatarsalgia: I discussed anti-inflammatory treatment options and various means of immobilization with the patient. I educated the patient on icing and stretching, supportive shoegear, and the use of orthotic devices and bracing. Shoe Recommendation: Advised patient on appropriate shoe gear for protection, healing and good foot health. Next Appt Details Follow Up: prn, Reason: History and Physical Notes * HPI (History of Present Illness) Category Sub-Category Detail Notes Category Not es HPI New Complaint Established gabriella ent presents with a new complaint. , Patient complains of an issue to Left big toe possible ingrown tonenail., Duration of problem is a couple of daysPatient denies any injury., ., MA: OM Examination Category Sub-Category Detail Notes Category Not es Dermatologic Skin findings: Skin is warm, dr y, supple with no breaks in the skin Hypertrophic / hyperkeratotic lesion: th ere is a hyperkeratotic skin lesion on the base of the right and left 5th metatarsals; plantar-lateral aspect. Debridement to this area demonstrates a nucleated core Ingrown Nail Nail is incurvated o n the, medial border of the left great toenail, There is erythema present., There is pain on palpation., There is no drainage Neurologic Gross sensation Gross sensation is intact [...] * Deisy HESS IDOB:1970 (55 yo F)Acc No.[id number]:05/06/2025 Patient: Deisy Donaldson I Provider: Hari Newberry DPM :1970 A ge:54 Y S ex:Female Date:05/06/2025 Address:[address] [place], [place] [id number] Subjective: * Chief Complaints: * T he patient tolerated the chemical ablation well. She also has pain in the left great toenail. She has never had an ingrown toenail before. It has not been bleeding or draining * HPI: H PI: New Complaint E stablished patient presents with a new complaint. , Patient complains of an issue to Left big toe possible ingrown tonenail., Duration of problem is a couple of daysPatient denies any injury., ., MA: OM. * ROS: G eneral / Constitutional: Patient [...] cramps Back Trouble Medical History Verified * Surgical History: Denies Past Surgical History. Surgical History verified. * Hospitalization/Major Diagno stic Procedure: Denies Past Hospitalization. Hospitalization Verified. * Family History: N o Family History documented.. F amily History Verified.. * Social History: Social History Verified. No Social History documented. * Medications: N one * Allergies: N .K.D.A.yesAllergies Verified. Objective: * Vitals: S hoe Size: 9, [...] to this area demonstrates a nucleated core. Ingrown Nail N ail is incurvated on the, medial border of the left great toenail, There is erythema present., There is pain on palpation., There is no drainage. V ascular: Dorsalis pedis pulse: 2 /4, [...] flexible and reducible. Assessment: * Assessment: 1. I ngrowing nail - L60.0 (Primary) 2 . O ther eccrine sweat disorders - L74.8 3 . M etatarsalgia, right foot - M77.41 Plan: * Treatment: 2. O ther eccrine sweat disorders Notes: Porokeratosis Resolved: The nonviable tissue was sharply debrided down to normal healthy appearing skin. No evidence of porokeratosis noted. Patient advised to monitor this area, as well as to use emollients and keep pressure off this area with padding, inserts, or orthotics. 3. M etatarsalgia, right foot Notes: Metatarsalgia: I discussed anti-inflammatory treatment options and various means of immobilization with the patient. I educated the patient on icing and stretching, supportive shoegear, and the use of orthotic devices and bracing. Wilder patten Recommendation: Advised patient on appropriate shoe gear for protection, healing and good foot health. * Follow Up: p rn Billing Information: * Visit Code: 09573 Office Visit, Est Pt., Level 3. * Procedure Codes: * Electronic signature of MIKA NEWBERRY DPM on 08/12/2025 at 02:[address] V[address] Sign off status: Pending * Provider: Hari Newberry DPM Date: 0 05/06/2025 Generated for Heavenly hansen/Ileana/Dorethaitting on: 1 10/13/2024 02:[address] V[address]OR
--- NOTE | 2025-07-15 09:57 | PC.NURSE ---
[facility] has started construction of its new state of the art ER which will open Spring 2026. With this, we anticipate parking may be a challenge for some our surgical patients and families. Parking spaces are limited but are available for all Surgical, obstetrics, and ER patients sharing this lot. If you arrive and find you are having a hard time finding a parking space, please note that we understand the challenges, please drive around the hospital and park near Hospital Entrance 1. When you enter this entrance, you can ask a volunteer to direct or take you back to the surgical waiting area to check in. We appreciate everyone?s understanding of these expected challenges while we build for your future. Report to the Outpatient Waiting Room, entrance under the green pavilion located off [address], at time __8:30 AM on date __08/12/25 . Planned Procedure Time: ___10:30 AM .? Time changes happen often and if your time is changed the preop area will call you the afternoon before. - You and your visitor will be asked to self-screen and do not enter if you have any COVID symptoms. Please call surgeon if you need to reschedule. - A mask is optional within the hospital at this time. Patients may have clear liquids (water, carbonated beverages, clear teas, apple juice) until 3 hours prior to surgery ( 7:30 AM) with a maximum of 20 ounces. - No food from midnight until time of surgery and no smoking, or chewing tobacco (or any form of nicotine). No chewing gum, candy or mints. Take only the following medications with a SIP of water on the morning of surgery: NONE DO NOT STOP ANY OF YOUR OTHER PRESCRIPTION MEDICATIONS PRIOR TO SURGERY EXCEPT THE FOLLOWING Hold all vitamins and supplements for 3 days per anesthesiologist. LAST DOSE 08/08/25 Medications to discontinue per physician IBUPROFEN HOLD 7 DAYS PRE OP PER DR DALY Date to take last dose 08/04/25 Please no make-up, nail latvian, hairspray, perfume, deodorant, or body powder the day of surgery.? No jewelry (including any body piercings) or valuables the day of surgery, leave them at home.? Please take a shower or bath the night before, or the morning of, surgery with an antibacterial soap.? Wear comfortable, loose fitting clothing.? Children are encouraged to wear pajamas. - Jewelry must be removed prior to entering the operating room.? Rings and piercings that are not removed may be cut off. - The hospital will not accept responsibility for valuables.? - Please leave all valuables, including medications, at home the day of surgery. If you are going home after surgery, a licensed route cdl driver must drive you home.? - NO public transportation without another adult if you receive anesthesia. - We recommend that an adult stay with you for 24 hours following discharge. - We also recommend that you do not drive, make important decision, drink alcoholic beverages, or take any drugs that were not prescribed by your health care provider for at least 24 hours after your discharge time. For Pediatric surgeries, we recommend two adults accompany the child home. Follow any additional instructions given to you from your surgeon. VERBAL AND WRITTEN instructions given to __PATIENT and asked if any additional questions and then verbalized understanding. Patient advised to call surgeon office or pre surgery nurse liaison [phone] if any additional questions.
[2025-07-15 10:04] VITALS: BMI 35.2
[2025-07-15 10:33] VITALS: BP 107/62; PULSE 71; RESP 18; TEMP 36.7; O2SAT 98
--- OUTSIDE RECORDS SUMMARY | 2025-08-04 02:40 | XMS_ITS ---
Author Organization [facility] Address [address] [place], [place] [address] Care Team Providers Care Home Based Assistant Name Role Phone MIKA NEWBERRY Unavailable [phone] Marc Neff Unavailable Unavailable REASON FOR VISIT The patient has painful porokeratosis of both feet. She has upcoming knee surgery and can not have a chemical ablation, but needs something done Vital Signs Height 63 in 08/04/2025 Height-cm 160.02 cm 08/04/2025 Encounters Encounter Location Date Provider Diagnosis [facility] [address] [facility] [address] [place], [place] [id number] 08/04/2025 MIKA NEWBERRY Metatarsalgia, right foot M77.41 ; Plantar porokeratosis, acquired L85.1 and Metatarsalgia, left foot M77.42 Assessments Encounter Date Diagnosis (ICD Code) Assessment Notes Treatment Notes Treatment Clinical Notes Section Notes 08/04/2025 Metatarsalgia, right foot (ICD-10 - M77.41) Metatarsalgia: I discussed anti-inflammatory treatment options and various means of immobilization with the patient. I educated the patient on icing and stretching, supportive shoegear, and the use of orthotic devices and bracing. Shoe Recommendation: Advised patient on appropriate shoe gear for protection, healing and good foot health. 08/04/2025 Plantar porokeratosis, acquired (ICD-10 - L85.1) 08/04/2025 Metatarsalgia, left foot (ICD-10 - M77.42) 08/04/2025 Other Porokeratosis Resolved: The nonviable tissue was sharply debrided down to normal healthy appearing skin. No evidence of porokeratosis noted. Patient advised to monitor this area, as well as to use emollients and keep pressure off this area with padding, inserts, or orthotics. Plan Of Treatment Treatment Notes Assessment Notes Metatarsalgia, right foot Metatarsalgia: I discussed anti-inflammatory treatment options and various means of immobilization with the patient. I educated the patient on icing and stretching, supportive shoegear, and the use of orthotic devices and bracing. Shoe Recommendation: Advised patient on appropriate shoe gear for protection, healing and good foot health. Other Porokeratosis Resolved: The nonviable tissue was sharply debrided down to normal healthy appearing skin. No evidence of porokeratosis noted. Patient advised to monitor this area, as well as to use emollients and keep pressure off this area with padding, inserts, or orthotics. Next Appt Details Follow Up: prn, Reason: History and Physical Notes * HPI (History of Present Illness) Category Sub-Category Detail Notes Category Not es HPI Follow Up Visit Patient presents for follow up visit for porokeratosis check. patient states both feet are very painfull all the time and she has tried a couple differnt things and nothing has helped, MA: IR Examination Category Sub-Category Detail Notes Category Not es Dermatologic Skin findings: Skin is warm, dr y, supple with no breaks in the skin Hypertrophic / hyperkeratotic lesion: th ere is a hyperkeratotic skin lesion on the base of the right and left 5th metatarsals; plantar-lateral aspect. Debridement to this area demonstrates a nucleated core Ingrown Nail Neurologic Gross sensation Gross sensation is intact [...] and well nourished Progress Notes * Deisy HESS:1970 (55 yo F)Acc No.[id number]:08/04/2025 Patient: Deisy Donaldson I Provider: Hari Newberry DPM :1970 A ge:55 Y S ex:Female Date:08/04/2025 Address:[address] [place] [address] [place] [id number] Subjective: * Chief Complaints: * T he patient has painful porokeratosis of both feet. She has upcoming knee surgery and can not have a chemical ablation, but needs something done * HPI: H PI: Follow Up Visit P atient presents for follow up visit for porokeratosis check. patient states both feet are very painfull all the time and she has tried a couple differnt things and nothing has helped, MA: IR. * ROS: G eneral / Constitutional: Patient [...] Trouble Medical History Verified * Surgical History: No Surgical History documented. Surgical History verified. * Hospitalization/Major Diagno stic Procedure: No Hospitalization Documented. Hospitalization Verified. * Family History: N o Family History documented.. F amily History Verified.. * Social History: Social History Verified. No Social History documented. * Medications: N one * Allergies: y esAllergies Verified. Objective: * Vitals: H t: 63 in, Ht-cm: 160.02 cm. * Examination: C onstitutional: Constitutional T he [...] flexible and reducible. Assessment: * Assessment: 1. P lantar porokeratosis, acquired - L85.1 (Primary) 2 . M etatarsalgia, right foot - M77.41 3 . M etatarsalgia, left foot - M77.42 Plan: * Treatment: 2. O thers Notes: Porokeratosis Resolved: The nonviable tissue was sharply debrided down to normal healthy appearing skin. No evidence of porokeratosis noted. Patient advised to monitor this area, as well as to use emollients and keep pressure off this area with padding, inserts, or orthotics. * Follow Up: p rn Billing Information: * Visit Code: 17614 Office Visit, Est Pt., Level 3. * Procedure Codes: * Electronic signature of MIKA NEWBERRY DPM on 08/12/2025 at 02:45 AM PICKER/PULLER Sign off status: Pending * Provider: Hari Newberry DPM Date: 10/05/2024 Generated for Heavenly hansen/Ileana/Dorethaitting on: 10/13/2024 02:45 AM PICKER/PULLER
[2025-08-12] VITALS (15 sets, daily range): BP systolic 100–129; BP diastolic 42–71; PULSE 71–90; RESP 8–20; TEMP 36.1–36.9; O2SAT 92–100
--- NOTE | ~2025-08-12 | XR_ITS ---
EXAMINATION: [id number], 08/12/2025 13:20 STUDIO OPERATOR HISTORY: POST OP RIGHT TKA COMPARISON: No comparisons available. Findings: No acute fracture or malalignment. Arthroplasty unremarkable Soft tissues unremarkable. Impression: No acute fracture or malalignment. Reviewed, dictated and finalized at location P. IO OPERATOR Impression: No acute fracture or malalignment.
--- OUTSIDE RECORDS SUMMARY | 2025-08-12 02:45 | XMS_ITS | Patient Health Record ---
Author Organization [facility] Address [address] [place], [place] [id number] Care Team Providers Care Front Desk Clerk Name Role Phone MIKA NEWBERRY Unavailable [phone] Marc Neff Unavailable Unavailable Allergies No Known [...] Control (Standard) Tobacco use: Nonsmoker Vital Signs Height-cm 160.02 cm 08/04/2025 Weight-kg 90.72 kg 05/06/2025 Height 63 in 08/04/2025 Weight 200 lbs 05/06/2025 BMI 35.42 kg/m2 05/06/2025 Encounters Encounter Location Date Provider Diagnosis [facility] [place] [address] [facility] [address] [place], [place] [id number] 04/05/2025 MIKA SNOOK Other eccrine sweat disorders L74.8 ; Metatarsalgia, right foot M77.41 ; Other hammer toe(s) (acquired), right foot M20.41 and Pain in right foot M79.671 [facility] [place] [address] [facility] [address] [place], [place] [id number] 05/06/2025 MIKA SNOOK Other eccrine sweat disorders L74.8 ; Ingrowing nail L60.0 and Metatarsalgia, right foot M77.41 [facility] [address] [facility] [address] [place], [place] [id number] 08/04/2025 MIKA SNOOK Metatarsalgia, right foot M77.41 ; Plantar porokeratosis, acquired L85.1 and Metatarsalgia, left foot M77.42 [facility] [place] [address] [place], [place] [id number] 11/16/2024 MIKA SNOOK Other eccrine sweat disorders L74.8 ; Metatarsalgia, right foot M77.41 ; Other hammer toe(s) (acquired), right foot M20.41 and Pain in right foot M79.671 [facility] [place] [address] [place], [place] [id number] 11/30/2024 MIKA SNOOK Other eccrine sweat disorders L74.8 ; Metatarsalgia, right foot M77.41 ; Other hammer toe(s) (acquired), right foot M20.41 and Pain in right foot M79.671 Assessments Encounter Date Diagnosis (ICD Code) Assessment Notes Treatment Notes Treatment Clinical Notes Section Notes 11/16/2024 Other eccrine sweat disorders (ICD-10 - [...] this area with padding, inserts, or orthotics. 08/04/2025 Metatarsalgia, right foot (ICD-10 - M77.41) [...] 08/04/2025 Metatarsalgia, left foot (ICD-10 - M77.42) 05/06/2025 Metatarsalgia, right foot (ICD-10 - M77.41) [...] the intra-operative and post-operative treatment course. 11/16/2024 Pain in right foot (ICD-10 - M79.671) 11/30/2024 Pain in right foot (ICD-10 - M79.671) 04/05/2025 Pain in right foot (ICD-10 - M79.671) 08/04/2025 Other Porokeratosis Resolved: The nonviable tissue was sharply debrided down to normal healthy appearing skin. No evidence of porokeratosis noted. Patient advised to monitor this area, as well as to use emollients and keep pressure off this area with padding, inserts, or orthotics. Plan Of Treatment No Information Insurance Providers Payer Name Payer Address Payer Phone Subscriber Number Group Number Insured Name Patient Relationship to Insured Coverage Start Date Coverage End Date [facility] ([facility]) ATTN CLAIMS [address] [place] [address] [id number] Deisy Mcneal Self - patient is the insured Medical (General) History Medical History History ICD Code acid reflux Leg/Feet cramps Back Trouble
--- NOTE | 2025-08-12 08:06 | WPDANESEPPF ---
Anes - Initial Pre Proc Eval Procedure: Operation Date: 08/12/25 10:30 Proposed Procedures p Right Total Knee Arthroplasty - Josh Watson MD Date/Time: 08/12/25 08:06 Surgeon: Josh aWtson MD Pre Op Diagnosis: primary OA right knee Patient Data Age: 55 Gender: F Height: 1.57 m Weight: 87.3 kg Last Vital Signs Temp 36.7 C 07/15/25 10:33 Pulse 71 07/15/25 10:33 Resp 18 07/15/25 10:33 BP 107/62 07/15/25 10:33 Pulse Ox 98 07/15/25 10:33 O2 Del Method Room Air 07/15/25 10:33 Allergies Allergy/AdvReac Type Severity Reaction Status Date / Time lactose AdvReac Intermediate GI UPSET Verified 08/12/25 10:35 sulfamethoxazole (From AdvReac Mild Nausea and Verified 08/12/25 10:35 Bactrim) Vomiting, headaches trimethoprim (From Bactrim) AdvReac Mild Nausea and Verified 08/12/25 10:35 Vomiting, headaches Home Medications ?Medication ?Instructions ?Recorded ?Confirmed ?Type multivitamin 1 cap PO DAILY 09/17/19 08/12/25 History cholecalciferol (vitamin D3) 25 25 mcg PO DAILY #30 caps 10/21/24 08/12/25 Rx mcg (1,000 unit) capsule pantoprazole 40 mg tablet,delayed 40 mg PO DAILY #90 tabs 05/11/25 08/12/25 Rx release ibuprofen 200 mg tablet (Advil) 400 mg PO PRN 07/15/25 07/30/25 History Held on 08/12/25. Instructions: Resume on 09/02/25. Hold while taking Meloxicam. vitamin B complex (Vitamins B 1 cap PO DAILY 07/15/25 08/12/25 History Complex capsule) aspirin 81 mg tablet,delayed 81 mg PO BID 14 days #28 tabs 08/12/25 Rx release meloxicam 15 mg tablet 15 mg PO DAILY #30 tabs 08/12/25 Rx oxycodone-acetaminophen 5 mg-325 1 - 2 tablet PO Q4-6H PRN pain 7 08/12/25 Rx mg tablet days #30 tabs prednisone 5 mg tablet 5 mg PO DAILY 3 weeks #21 tabs 08/12/25 Rx Patient hx anesthesia problems: none Family hx anesthesia problems: none Results Review: All pre-operative results and documents have been reviewed as part of the pre-operative evaluation. [facility] Past Medical History Medical History Enlarged lymph node Subcutaneous cyst Furuncle of skin or subcutaneous tissue Surgical History Surgical History S/P cholecystectomy S/P appendectomy Family History Family History Mother Family history of diabetes mellitus in first degree relative Diabetes mellitus Patient's mother is in good health Other Family history of cardiovascular disease Family history of kidney disease Social History Social History Social History: Smoking status: Never smoker Second hand tobacco smoke exposure: No Additional smoking assessment comments: DENIES ANY FORM OF TOBACCO USE Alcohol intake: never Substance use: never Substance use type: does not use Lack of Transportation: No Lack of Food: Never True Current Housing: I Have Housing Concerned About Future Housing: No Difficulty Paying Gas/Electric Bills: No Difficulty Paying for Meds: No Currently Unemployed: No Education: Bachelor's Degree Difficulty w/ Childcare or Family Care: No Living arrangements: with family Occupation/Education: occupation Gender identity (if verbalized by the patient): Female Sexual Orientation (if Verbalized by the Patient): Straight or Heterosexual Spiritual care concerns: No Anes - Eval Final PreProcedure Day of Procedure 08/12/25 08:06 Patient weight: obese Heart: regular rate and rhythm Lungs: clear to auscultation Airway: Mallampati scale class II Neurological: alert and oriented Last oral intake: >/= 8 hours ASA classification: II Emergent: no Anesthetic plan: proceed Anesthesia type and monitoring: general LMA and standard monitoring Results Review: All pre-operative results and documents have been reviewed as part of the pre-operative evaluation. Informed Consent: The patient's anesthetic plan and its attendant risks and benefits were discussed with the patient/family/POA. Questions were solicited and answers provided to the satisfaction of the patient/family/POA.
[2025-08-12] MEDS: LACTATED RINGERS 1,000 ML 30 ML IV CONT ×2 (09:15→12:40)
[2025-08-12] MEDS: ACETAMINOPHEN 500 MG TABLET 1000 MG PO (09:15)
[2025-08-12] MEDS: TRANEXAMIC ACID 1,000MG/ISO100 1,000 MG/100 ML BAG 200 MG IVPB (09:15)
[2025-08-12] MEDS: ceFAZolin 2 GM in SODIUM CHLORIDE 0.9% IV 50 ML 100 ML IVPB ×2 (10:17→17:08)
[2025-08-12] MEDS: SODIUM CHLORIDE 0.9% IV 37.7 ML, MORPHINE SULFATE INJ (*CRX) 2 MG, ROPivacaine HCL 1% 2... INFILTRATE (10:47)
[2025-08-12] MEDS: GENTAMICIN BONE CEMENT REFOBACIN 1 EACH TOPICAL (11:45)
[2025-08-12] MEDS: TRANEXAMIC ACID 1,000 MG/10 ML AMPUL 1000 MG IV PUSH (12:09)
[2025-08-12] MEDS: ONDANSETRON INJ 4 MG/2 ML VIAL IV PUSH ×2 (13:30→16:51)
[2025-08-12] MEDS: SCOPOLAMINE 1 MG PATCH 1 PATCH TRANSDERM (14:26)
--- NOTE | 2025-08-12 15:23 | P.OP_ITS ---
Procedure Note - Detailed Date of Procedure 08/12/25 Pre-op Diagnosis Right knee degenerative arthritis. Post-op Diagnosis Same Procedure Performed Calipered, kinematically aligned total knee replacement right knee. Surgeon Josh Watson MD Warp Tester Antonina Rahman PA-C Anesthesia General Indications Primary patellofemoral arthritis. Findings According to the calipered kinematic alignment principles, the knee was balanced by the following verification checks incorporating 6 caliper measurements, using an insert goniometer to select the insert thickness, and adjusting the tibial resection following the kinematic alignment algorithm (see figure 160.10 published in [employer] [facility] chapter on kinematic alignment total knee arthroplasty.) The steps verified the femoral and tibial components were kinematically aligned coincident to the patient's pre arthritic joint lines, which closely restored the [place] tibial compartment forces and ligament laxities without ligament release. The Medacta GMK SperiKA knee, designed specif [facility] for kinematic alignment, fit optimally. Severe patellofemoral disease and mild lateral changes. PCL release performed off of the proximal tibia. The record of verification checks were documented and scanned into the chart. Distal Femoral Resection: Distal Medial 8 mm, Distal Lateral 8.5 mm Target thickness of 8mm Unworn, 6mm Worn (No Cartilage). Posterior Femoral Resection: Posterior Medial 7 mm, Posterior Lateral 7 mm. Target thickness of 7mm Unworn, 5mm Worn (No Cartilage). Description of Procedure General anesthesia was administered. A well-padded tourniquet was placed high on the thigh. The limb was prepped and draped in the usual sterile fashion. The limb was exsanguinated and the tourniquet inflated to 300 mmHgduring e xposure and cementation. A longitudinal incision was created over the midline of the knee. Sharp dissection was taken through subcutaneous tissues. Electrocautery was used for hemostasis. A subvastus approach to the knee joint was performed. The ACL, anterior horns of the menisci, and fat pad were excised, and a subperiosteal dissection was carried along the posterior medial border of the tibia. Starting midway between the top of the notch in the anterior femoral cortex, I drilled a 9 mm diameter hole parallel to the anterior cortex to minimize flexion of the femoral component and promote patella tracking. I verified the existence of a 5-10 mm bone bridge between the posterior aspect of the hole and the anterior limit of the intercondylar notch. An intraosseous positioning jorden was inserted 10 cm into the femur perpendicular to the distal joint line and parallel to the anterior cortex. I used a distal femoral referencing guide that compensated 2 mm when the cartilage was worn on the distal medial femoral condyle, and 2 mm when the cartilage was worn on the distal lateral femoral condyle. The basis for setting the distal and posterior femoral resection guide is knowing that the varus and valgus grade II to IV Kellegren-Shayne osteoarthritic knees have negligible bone wear at 0? and 90? and that the mean full-thickness cartilage wear approximates 2 mm. I measured the thickness of distal femoral resections with a caliper to +/- 0.5 mm. The thickness of each resection was adjusted to match the thickness of the respective condyle of the femoral component within 0.5 mm of target after compensating for cartilage wear and kerf. When the distal resection was 1-2 mm too thin, a recut guide was used to adjust the cut. When the distal resection was too thick, a 1 or 2 mm thick washer was fixed to the back of the 4-in-1 chamfer block to aviva a corrective gap between the femoral component and distal femur. I set posterior femoral referencing guide at 0? orientation to position the pin holes for the 4 in 1 chamfer block. The marylou wing measured the width of the distal femoral resection and selected the size of the 4 in 1 chamfer block and femoral component. The AP sizer confirmed the size. I measured the thickness of the posterior femoral resections with a caliper before making the anterior and chamfer cuts. I adjusted the thicknesses of each resection to match the thickness of the respective condyle of the femoral component within +/-0.5 mm after compensating for cartilage wear and curve. When a posterior resection femoral resection was 1-2 mm too thick or thin a corrective correction was made by shifting or rotating the 4 in 1 chamfer block as needed. The chamfer block was secured in the correct position with compression screws. The anterior and chamfer femoral resections were made. These caliper measurements and corrections verified that the femoral component was set coincident with the patient's pre-arthritic distal and posterior femoral joint lines. I removed all the medial and lateral femoral and tibial osteophytes to restore the pre arthritic length of the medial and lateral collateral ligaments. I rj AP lines along the major axis of the lateral tibial plateau in between the tibial spines which identified the flexion extension plane of the knee. A conventional extramedullary tibial resection guide was applied to the ankle. An marylou wing was placed medially in the saw slot. The varus valgus angle of the tibial resection guide was adjusted until the guide paralleled the proximal tibial articular surface after compensating for cartilage and bone wear. The slope of flexion extension angle of the tibial resection guide was adjusted until the marylou wing paralleled the slope of the medial tibia after compensating for wear. The AP axis of the tibial resection guide was adjusted parallel to the two lines. The proximal tibia was resected, partially releasing the insertion of the posterior cruciate ligament. The thickness of the medial and lateral lateral tibial condyle was measured at the base of the tibial spines. I visually verified the slope of the medial border of the resection was parallel to the pat ient's pre arthritic slope after compensating for cartilage and bone wear. I removed the remnants of the posterior horns of the menisci and posterior osteophytes and cauterized the inferior lateral genicular vessels. The Aquamantys bipolar device was also used to for additional hemostasis. When the knee had a preoperative flexion contracture of 20? or more I teased the capsule off the posterior femur with a curved 3 quarter-inch osteotome. I administered the posterior femoral periosteal injection by delivering 10 cc using a 20 gauge spinal needle at the most medial and 10 cc at the most lateral femoral spur surface which reduced the risk of injury to the posterior neurovascular structures. I followed 6 options in a decision tree to fine tune the varus valgus and posterior slope orientation of the tibial component to restore the patient's pre arthritic tibial joint line and limb alignment. First, I adjusted the varus- valgus orientation of the proximal tibia resection working in 1 degree to 2 degree increments until there was negligible medial and lateral lift off of the distal femoral and proximal tibial resection from the spacer block during a varus valgus laxity assessment in extension. I selected the largest anatomic shape trial tibial base plate that fit within the cortical boundary of the proximal tibial resection. The base plate was best fit parallel to the cortical boundary which set the Internal-external orientation of the anterior to posterior and medial to lateral positions. The best fit method set the AP axis of the tibial base plate and insert parallel to the flexion extension plane of the pre arthritic knee. I pinned the trial tibial base plate, prepared the cruciate slot, and fixed the base plate to the tibia with the cruciate stem. I inserted the trial femoral component. The knee was placed in full extension. Varus valgus laxity is of the knee with trial components were assessed. When asymmetric laxity was observed a 1-2 degree varus or valgus recut guide was used to fine tune the tibial resection until the laxity was 1 degree or less in full extension like the [place] knee. The following steps determined the optimal insert thickness within +/-1 mm. First I inserted an insert goniometer that matched the thickness of the spacer block. I reduced the patella and then with the knee in maximum extension, I verified the knee hyperextended a few degrees and had negligible varus valgus laxity, like the pre arthritic knee. Next, I measured the external tibial orientation which was the angle the insert goniometer intersected the sagittal line on the medial condyle of the femoral trial component. Then with the knee in 15-30 degrees flexion I verified a 3-4 mm gap in the lateral compartment and no gap in the medial compartment during a 2nd varus valgus laxity test. Next, I placed the knee in 90? of flexion and the foot resting on the operating table and measured the internal tibial orientation. I repeated the steps until I identified the insert thickness that provided the highest external tibia orientation in extension and the highest internal tibial orientation at 90? flexion without anterior lift-off of the insert from the tibial base plate. The insert with this thickness was implanted. I applied a posterior drawer test with the tibia distracted by gravity and verified no posterior subluxation of the tibia relative to the femur. The thickness of the [place] patella was measured with a caliper. The patella was resected using the oscillating saw. The best fitting anatomic patella button was selected. The fixation holes were drilled. When the patella and patella buttons combined thickness was thicker than the k[place] patella, the patella was recut. The patella remained centered on the trochlea and tracked well throughout the entire arc of flexion and extension. I used pulse lavage to clean the bony surfaces of debris and dried bone. I cemented the tibial, femoral, and patellar components using 1 bag of methylmethacrylate with Gentamycin, then rechecked the stability at full extension, 15-30 degrees, and 90? flexion and verified presybeterian of the entire arc of motion of the knee. The circulating nurse confirmed the sponge and needle counts were correct. I used pulse lavage to rinse the joint and wound. The extensor mechanism was closed with interrupted #1 Vicryl suture and #1 running Stratafix suture. The subcutaneous layer was closed with interrupted #1 Vicryl suture followed by 2-0 Stratafix and 3-0 Stratafix. Steri-Strips placed on the skin. Silver impregnated occlusive dressing applied to the wound. A light gauze wrap and Jong bandage were placed. The patient was transferred to the recovery room in stable condition. There were no complications. Physician executive assistant, Antonina Rahman PA-C, required for surgery; including patient positioning, draping, tissue retraction, maintaining instrument position, cement removal, wound closure, and dressing placement. Implants Medacta GMK spheriKA Femoral component SpheriKA size 4, tibial component size t3i4, vitamin-E flex insert, thickness 13 mm, Becky patella implant size 3. Estimated Blood Loss 50 Drains No Pathology None sent Complications No immediate complications Condition Stable Disposition PACU [facility] Billing Surgery - Charge Forward: Surgery Billing
[2025-08-12] MEDS: SODIUM CHLORIDE 0.9% IV 1,000 ML 125 ML IV CONT (15:56)
[2025-08-12] MEDS: ASPIRIN 81 MG ENTERIC TABLET PO ×2 (17:18→20:42)
[2025-08-12] MEDS: SENNA/DOCUSATE SODIUM TABLET 2 TAB PO (17:18)
[2025-08-12] MEDS: MELOXICAM 7.5 MG TABLET PO (17:18)
[2025-08-12] MEDS: ACETAMINOPHEN 325 MG TABLET 650 MG PO ×2 (17:18→23:07)
[2025-08-13 00:21] VITALS: BP 88/55; PULSE 72; RESP 18; TEMP 36.3; O2SAT 98
[2025-08-13] MEDS: ceFAZolin 2 GM in SODIUM CHLORIDE 0.9% IV 50 ML 100 ML IVPB ×2 (01:56→11:19)
[2025-08-13 04:21] VITALS: BP 95/48; PULSE 70; RESP 18; TEMP 36.2; O2SAT 95
[2025-08-13] MEDS: ACETAMINOPHEN 325 MG TABLET 650 MG PO ×2 (05:48→11:18)
[2025-08-13 06:18] LABS: Hematocrit 37.8 % (37.0-47.0); Hemoglobin 11.7 g/dL (12.0-15.0); Immature Granulocyte Percent A 0.5 % (0-0.5); Lymphocytes Absolute Auto 1.31 K/mm3 (0.9-3.2); Mean Corpuscular HGB Conc 31.0 g/dl (32-36); Mean Corpuscular Hemoglobin 27.1 pg (26-34); Mean Corpuscular Volume 87.5 fl (80-100); Nucleated Red Blood Cells Absolute Auto 0.000 K/mm3 (0.0-0.012); Nucleated Red Blood Cells Perc 0.0 % (0.0-0.2); Platelet Count Result 241 k/mm3 (150-375); Red Blood Count 4.32 M/mm3 (4.2-5.4); White Blood Count 14.7 K/mm3 (4.5-10.0)
[2025-08-13 06:42] LABS: Anion Gap 5 mmol/L (4-12); Blood Urea Nitrogen 12 mg/dL (7-17); Calcium 8.6 mg/dL (8.4-10.2); Carbon Dioxide 25 mmol/L (22-30); Chloride 106 mmol/L (98-107); Estimated CRCL calculation 76 ml/min; Estimated Glomerular Filt Rate > 60; Glucose 124 mg/dL (65-110); Potassium 4.3 mmol/L (3.4-5.0); Sodium 136 mmol/L (137-145)
--- NOTE | 2025-08-13 07:56 | P.PNOP_ITS ---
Progress Note: A&P Assessment and Plan (1) Status post total right knee replacement: Code(s): Z96.651 - Presence of right artificial knee joint Status: Acute Assessment and Plan: Postop day 1: total knee arthroplasty. Patient tolerated procedure well. No complications. Pain manageable with pain medication. No numbness or tingling. We had a lengthy discussion regarding postoperative wound care, limitations, expectations, and exercises. Patient shows good understanding. She has had initial physical therapy and is tolerating it well. DVT prophylaxis: 81 mg baby aspirin b.i.d. for 14 days. Pain medication: Percocet. Patient has followup appointment with Dr. Watson in 3 weeks. Subjective Subjective Date/Time Seen: 08/13/25 07:56 Interval history: Patient resting comfortably. No distal numbness or tingling. No other complaint s. Review of Systems Review of Systems: All systems reviewed & are unremarkable except as noted in HPI and below Exam Narrative: 55-year-old overweight female. Resting comfortably in chair. Alert and oriented x3. No acute distress. Wearing compression socks bilaterally. Dressing dry and intact without drainage. Mild swelling. No ecchymosis. No erythema. No hematoma. Range of motion limited due to pain. Calf nontender. Neurologic status intact. No varicosities. Distal pulses palpable. Objective Data Vital Signs Vital Signs: Vital Signs - 24 hr 08/12/25 09:15 08/12/25 12:40 08/12/25 12:55 Temperature 97.8 F 97.1 F L Pulse Rate 80 75 83 Respiratory Rate 18 10 L 10 L Blood Pressure 112/42 L 102/53 L 113/67 Pulse Oximetry 100 95 95 Oxygen Delivery Room Air Simple Face Mask Simple Face Mask Oxygen Flow Rate 8 8 08/12/25 13:10 08/12/25 13:25 08/12/25 13:40 Temperature Pulse Rate 87 77 75 Respiratory Rate 8 L 12 14 Blood Pressure 108/60 129/71 116/59 L Pulse Oximetry 95 93 92 Oxygen Delivery Simple Face Mask Nasal Cannula Room Air Oxygen Flow Rate 8 2 08/12/25 13:55 08/12/25 14:10 08/12/25 14:25 Temperature Pulse Rate 76 71 82 Respiratory Rate 12 11 L 13 Blood Pressure 118/63 112/60 118/61 Pulse Oximetry 95 95 94 Oxygen Delivery Nasal Cannula Nasal Cannula Nasal Cannula Oxygen Flow Rate 2 2 2 08/12/25 14:36 08/12/25 14:51 08/12/25 15:21 Temperature 96.9 F L 97.1 F L 97.5 F L Pulse Rate 81 81 83 Respiratory Rate 16 16 18 Blood Pressure 108/60 109/59 L 113/65 Pulse Oximetry 95 98 100 Oxygen Delivery Oxygen Flow Rate 08/12/25 16:20 08/12/25 16:21 08/12/25 20:00 Temperature 98.5 F Pulse Rate 78 82 Respiratory Rate 20 18 Blood Pressure 121/69 Pulse Oximetry 100 97 Oxygen Delivery Nasal Cannula Room Air Oxygen Flow Rate 2 08/12/25 20:21 08/13/25 00:21 08/13/25 04:21 Temperature 97.5 F L 97.3 F L 97.2 F L Pulse Rate 90 72 70 Respiratory Rate 20 18 18 Blood Pressure 100/44 L 88/55 L 95/48 L Pulse Oximetry 95 98 95 Oxygen Delivery Oxygen Flow Rate Intake/Output Intake/Output: Intake & Output 08/10/25 08/11/25 08/12/25 08/13/25 23:59 23:59 23:59 23:59 Intake Total 940 290 Balance 940 290 Meds/Results Medications: Active Medications Generic Name Dose Route Start Last Admin Trade Name Selvinq PRN Reason Stop Dose Admin Acetaminophen 650 mg 08/12/25 14:36 08/13/25 05:48 Acetaminophen 325 Mg Tablet PO 650 mg Q6HR [facility] Administration Aspirin 81 mg 08/12/25 14:36 08/12/25 20:42 Aspirin 81 Mg Enteric Tablet PO 81 mg Q12HR [facility] Administration Cyclobenzaprine HCl 5 mg 08/12/25 14:36 Cyclobenzaprine Hcl 5 Mg Tablet PO Q8H PRN Spasms Diphenhydramine HCl 25 mg 08/12/25 14:36 Diphenhydramine Hcl Inj 50 Mg/Ml Vial IV PUSH Q6H PRN Itching Famotidine 20 mg 08/12/25 14:36 Famotidine 20 Mg Tablet PO Q12HR [facility] Hydromorphone HCl 1 mg 08/12/25 14:36 Hydromorphone Hcl Inj (*Crx) 1 Mg/Ml Syr IV PUSH Q2H PRN Breakthrough Pain Rated 7-10 or NPO Hydromorphone HCl 0.5 mg 08/12/25 14:36 Hydromorphone Hcl Inj (*Crx) 1 Mg/Ml Syr IV PUSH Q2H PRN Breakthrough Pain Rated 4-6 or NPO Cefazolin Sodium 2 gm/ Sodium 50 mls @ 100 mls/hr 08/12/25 18:00 08/13/25 02:26 Chloride IVPB 08/13/25 10:29 Infused Q8H [facility] Infusion Meloxicam 7.5 mg 08/12/25 14:36 08/12/25 18:37 Meloxicam 7.5 Mg Tablet PO Not Given BID [facility] Miscellaneous Information 1 each 08/12/25 00:01 Pepcid And Protonix May Be A Duplication Of Therapy. Please Clarify Which To Continue And XX 09/11/25 00:00 CLARIFY DAKSHA Naloxone HCl 0.1 mg 08/12/25 14:36 Naloxone Hcl 0.4 Mg/Ml Vial IV PUSH Q2M PRN Opiate Reversal Ondansetron HCl 4 mg 08/12/25 14:36 08/12/25 16:51 Ondansetron Inj 4 Mg/2 Ml Vial IV PUSH 4 mg Q4H PRN Administration Nausea And Vomiting Oxycodone/Acetaminophen 1 tablet 08/12/25 14:36 Oxycodone/Acetaminophen (*Crx) 5-325 Mg Tablet PO Q4H PRN Pain Rated 4-6 Oxycodone/Acetaminophen 1 tab 08/12/25 14:36 Oxycodone/Acetaminophen (*Crx) 10-325 Mg Tablet PO Q6H PRN Pain Rated 7-10 Pantoprazole Sodium 40 mg 08/12/25 14:36 Pantoprazole 40 Mg Tablet PO DAILY [facility] Polyethylene Glycol 17 gm 08/12/25 14:36 08/12/25 17:19 Polyethylene Glycol 3350 17 Gm Powd.Pack PO 17 gm QAM [facility] Administration Prednisone 5 mg 08/12/25 17:00 08/12/25 17:18 Prednisone 5 Mg Tablet PO 5 mg DAILY@1700 [facility] Administration Senna/Docusate Sodium 2 tab 08/12/25 14:36 08/12/25 18:37 Senna/Docusate Sodium Tablet PO Not Given BID [facility] Tramadol HCl 50 mg 08/12/25 14:36 Tramadol Hcl (*Crx) 50 Mg Tablet PO Q4H PRN Pain Rated 1-3 Radiology Results: ITS Impressions Knee X-Ray 08/12/25 13:32 Impression: No acute fracture or malalignment. Labs Labs: Laboratory Results - last 24 hr 08/12/25 08/13/25 09:01 05:26 WBC 14.7 H RBC 4.32 Hgb 11.7 L Hct 37.8 MCV 87.5 MCH 27.1 MCHC 31.0 L RDW 15.2 H Plt Count 241 MPV 8.9 Immature Gran % (Auto) 0.5 Neut % (Auto) 84.5 H Lymph % (Auto) 8.9 L [place] % (Auto) 5.8 Eos % (Auto) 0.0 Baso % (Auto) 0.3 Lymph # (Auto) 1.31 [place] # (Auto) 0.9 H Eos # (Auto) 0.0 Baso # (Auto) 0.0 Abs Immat Gran (auto) 0.07 H Absolute Neuts (auto) 12.5 H Absolute Nucleated RBC 0.000 Nucleated RBC % 0.0 Sodium 136 L Potassium 4.3 Chloride 106 Carbon Dioxide 25 Anion Gap 5 BUN 12 Creatinine 0.72 Estim Creat Clear Calc 76 Estimated GFR > 60 Glucose 124 H Calcium 8.6 Blood Type O Positive Antibody Screen Negative
[2025-08-13] MEDS: SENNA/DOCUSATE SODIUM TABLET 2 TAB PO (09:15)
[2025-08-13] MEDS: MELOXICAM 7.5 MG TABLET PO (09:15)
[2025-08-13] MEDS: ASPIRIN 81 MG ENTERIC TABLET PO (09:15)
[2025-08-13] MEDS: PANTOPRAZOLE 40 MG TABLET PO (11:18)
--- NOTE | 2025-08-13 12:56 | WPDANESPN ---
Anes - Prog Note Post-Op Date/Time: 08/13/25 12:56 Cardiovascular status: normal Respiratory status: normal Airway patency: baseline Mental status: baseline Vital Signs: Last Vital Signs Temp 36.2 C L 08/13/25 04:21 Pulse 70 08/13/25 04:21 Resp 18 08/13/25 04:21 BP 95/48 L 08/13/25 04:21 Pulse Ox 95 08/13/25 04:21 O2 Del Method Room Air 08/13/25 08:40 O2 Flow Rate 2 08/12/25 16:20 Pain Score (VAS): 3 I/O: Intake & Output 08/12/25 08/13/25 08/13/25 23:59 07:59 15:59 Intake Total 290 290 480 Balance 290 290 480 Laboratory Tests 08/13/25 05:26 08/13/25 05:26 08/13/25 05:26 WBC 14.7 H RBC 4.32 Hgb 11.7 L Hct 37.8 MCV 87.5 MCH 27.1 MCHC 31.0 L RDW 15.2 H Plt Count 241 MPV 8.9 Immature Gran % (Auto) 0.5 Neut % (Auto) 84.5 H Lymph % (Auto) 8.9 L [place] % (Auto) 5.8 Eos % (Auto) 0.0 Baso % (Auto) 0.3 Lymph # (Auto) 1.31 [place] # (Auto) 0.9 H Eos # (Auto) 0.0 Baso # (Auto) 0.0 Abs Immat Gran (auto) 0.07 H Absolute Neuts (auto) 12.5 H Absolute Nucleated RBC 0.000 Nucleated RBC % 0.0 Sodium 136 L Potassium 4.3 Chloride 106 Carbon Dioxide 25 Anion Gap 5 BUN 12 Creatinine 0.72 Estim Creat Clear Calc 76 Estimated GFR > 60 Glucose 124 H Calcium 8.6 Patient Feedback: Patient satisfied with anesthetic care.
== END 2025-08-13 14:15 | disposition home or self-care (01) ==
LOC: ANHSURGERY 08:02 → ANH3MEDSUR 14:45
PROVIDERS: Physician Assistant Surgical; PCP Family Medicine; Visit Provider Orthopaedic Surgery
PROC: (CPT 27447; principal; 2025-08-12 10:30)
DX: M17.11 Unilateral primary osteoarthritis, right knee (principal); M25.761 Osteophyte, right knee; E66.9 Obesity, unspecified; Z68.35 Body mass index [BMI] 35.0-35.9, adult; Z79.82 Long term (current) use of aspirin; Z79.891 Long term (current) use of opiate analgesic; Z79.52 Long term (current) use of systemic steroids; Z79.1 Long term (current) use of non-steroidal anti-inflammatories (NSAID); Z98.890 Other specified postprocedural states; Z90.49 Acquired absence of other specified parts of digestive tract; Z82.49 Family history of ischemic heart disease and other diseases of the circulatory system
CPT/HCPCS: 27447; 36415; 73560; 80048; 85025; 86850; 86900; 86901; 97110; 97161; 97165; C1776; J0690; A9270; C1713; J0166; J1100; J1171; J1200; J1885; J2250; J2270; J2405; J2704; J2795; J3010; J3290; J7030; J7120; J7512